=== PATIENT | female | born 1990 | race Caucasian/White ===

== ENCOUNTER 2023-09-30 00:17 | Inpatient (IN) | payer OTHER ==
[2023-09-30] MEDS ORDERED: LORazepam 2 MG/ML SDV VIAL IVPUSH PRN (00:45)
[2023-09-30] MEDS ORDERED: levETIRAcetam 500 MG/5 ML INJECTION VIAL IVPB ONE ×4 (00:46→08:01)
[2023-09-30] MEDS ORDERED: SODIUM CHLORIDE 0.9% 500 ML INFUS.BAG IV ONE ×2 (00:58→03:22)
[2023-09-30] MEDS ORDERED: ONDANSETRON 4 MG/2 ML VIAL IVPUSH ONE (01:20)
[2023-09-30] MEDS ORDERED: CLINDAMYCIN 600MG PREMIX IVPB 600 MG/50 ML BAG IVPB ONE (01:49)
[2023-09-30 01:57] LABS: HEMATOCRIT 26.9 % (32.4-45.2); HEMOGLOBIN 8.9 GM/dL (10.7-15.3); MCH 26.9 pg (25.7-33.7); MCHC 32.9 g/dl (32.0-36.0); MEAN PLT VOLUME 5.9 fl (7.5-11.1); PLATELET COUNT 658 10^3/uL (134-434); RBC 3.29 M/mm3 (3.60-5.2); RDW 18.7 % (11.6-15.6); WHITE BLOOD COUNT 21.5 K/mm3 (4.0-10.0)
[2023-09-30 02:06] LABS: CHLORIDE 102 mmol/L (98-107); POTASSIUM 3.4 mmol/L (3.5-5.1); SODIUM 133 mmol/L (136-145)
[2023-09-30 02:10] LABS: ALBUMIN 2.1 g/dl (3.4-5.0); ANION GAP 5 mmol/L (4-13); BLOOD UREA NITROGEN 7.1 mg/dL (7-18); CO2 26 mmol/L (21-32); GLUCOSE,RANDOM 134 mg/dL (74-106)
[2023-09-30 02:12] LABS: CREATININE 0.8 mg/dL (0.55-1.3); SGOT/AST 15 U/L (15-37)
[2023-09-30 02:14] LABS: TOT PROT 8.7 g/dl (6.4-8.2)
[2023-09-30 02:16] LABS: ALK PHOS 82 U/L (45-117)
[2023-09-30] MEDS ORDERED: MAGNESIUM SULF 50% (8.12 MEQ/2 ML-1 GM VIAL) IVPB ONE (02:17)
[2023-09-30 02:32] LABS: LACTIC ACID 2.4 mmol/L (0.4-2.0)
[2023-09-30] MEDS ORDERED: VANCOMYCIN 1,000 MG in DEXTROSE 5%-WATER - 250 ML IVPB ONE (02:36)
[2023-09-30 02:37] LABS: BILIRUBIN,TOTAL 0.3 mg/dL (0.2-1)
[2023-09-30] MEDS ORDERED: PIPERACILLIN/TAZOB 3.375 GM 3.375 GM in DEXTROSE 5%-WATER - 50 ML IVPB ONE (02:38)
[2023-09-30 02:40] LABS: SGPT/ALT 11 U/L (13-61)
[2023-09-30] MEDS ORDERED: ONDANSETRON 4 MG/2 ML VIAL ONE (02:43)
[2023-09-30] MEDS ORDERED: VANCOMYCIN 1 GRAM (PRE-DOCKED) 1,000 MG/250 ML BAG IVPB ONE (02:43)
[2023-09-30] MEDS ORDERED: MAGNESIUM SULFATE IN WATER 2 GM/50 ML IVPB IVPB ONE (02:43)
[2023-09-30] MEDS ORDERED: PIPERACILLIN/TAZOB 3.375 GM 3.375 GM/50 ML BAG IVPB ONE ×2 (02:44→08:02)
[2023-09-30 03:46] LABS: ANISOCYTOSIS 1+; MACROCYTOSIS 1+; ROULEAU 1+
[2023-09-30] MEDS ORDERED: diazePAM CARPU-JECT 10 MG/2 ML DISP.SYRIN IVPUSH ONE (04:18)
[2023-09-30] MEDS ORDERED: diazePAM CARPU-JECT 10 MG/2 ML DISP.SYRIN ONE (04:21)
[2023-09-30] MEDS ORDERED: VANCOMYCIN/WATER 1250 MG 1,250 MG/250 ML BAG IVPB SCH ×2 (04:45→15:00)
[2023-09-30] MEDS ORDERED: SODIUM CHLORIDE 1,000 ML IV STA (04:47)
[2023-09-30 05:24] LABS: EPI CELLS >36 /uL (0-25.1); HYALINE CASTS 1 /uL (0-3.1); PH,URINE 6.5 (5.0-8.0); URINE APPEARANCE CLOUDY; URINE BACTERIA 314 /uL (0-1359); URINE BILIRUBIN NEGATIVE (NEGATIVE); URINE COLOR YELLOW; URINE GLUCOSE (UA) NEGATIVE (NEGATIVE); URINE KETONE NEGATIVE (NEGATIVE); URINE LEUK ESTERASE 3+ (NEGATIVE); URINE NITRITE NEGATIVE (NEGATIVE); URINE PROTEIN TRACE (NEGATIVE); URINE RBC 255 /uL (0-23.9); URINE UROBILINOGEN 0.2 mg/dL (0.2-1.0); URINE WBC 149 /uL (0-25.8)
[2023-09-30] MEDS ORDERED: ACETAMINOPHEN 1000 MG/100 ML BAG IVPB PRN (05:24)
[2023-09-30 05:26] LABS: COCAINE, UR NEGATIVE (NEGATIVE); OPIATES, URI NEGATIVE (NEGATIVE); URINE BARBITURATES NEGATIVE (NEGATIVE)
[2023-09-30 05:28] LABS: METHADONE, UR NEGATIVE (NEGATIVE)
[2023-09-30 05:35] LABS: PHENCYCLIDINE,URINE NEGATIVE (NEGATIVE); URINE AMPHETAMINES NEGATIVE (NEGATIVE); URINE BENZODIAZEPINES POSITIVE (NEGATIVE)
[2023-09-30 06:37] LABS: HEMATOCRIT 27.7 % (32.4-45.2); HEMOGLOBIN 8.9 GM/dL (10.7-15.3); MCH 27.2 pg (25.7-33.7); MCHC 32.1 g/dl (32.0-36.0); MEAN CELL VOLUME 84.8 fl (80-96); MEAN PLT VOLUME 6.1 fl (7.5-11.1); PLATELET COUNT 641 10^3/uL (134-434); RBC 3.27 M/mm3 (3.60-5.2); RDW 18.6 % (11.6-15.6); WHITE BLOOD COUNT 20.5 K/mm3 (4.0-10.0)
[2023-09-30 06:59] LABS: LACTIC ACID 4.4 mmol/L (0.4-2.0)
[2023-09-30 06:59] LABS: POTASSIUM 3.9 mmol/L (3.5-5.1)
[2023-09-30 07:00] LABS: ALBUMIN 2.2 g/dl (3.4-5.0); CALCIUM 8.1 mg/dL (8.5-10.1)
[2023-09-30 07:02] LABS: MAGNESIUM 2.4 mg/dL (1.8-2.4)
[2023-09-30 07:03] LABS: CREATININE 0.6 mg/dL (0.55-1.3)
[2023-09-30 07:04] LABS: PHOSPHOROUS 2.9 mg/dL (2.5-4.9)
[2023-09-30 07:06] LABS: BILIRUBIN,TOTAL 0.3 mg/dL (0.2-1)
[2023-09-30] MEDS ORDERED: ACETAMINOPHEN INJECTION 100 ML IVPB ONE (08:01)
[2023-09-30] MEDS ORDERED: KCL 10 MEQ IVPB 30 MEQ/300 ML INFUS.BAG IVPB ONE (08:02)
[2023-09-30] MEDS: KCL 10 MEQ IVPB 10 MEQ/100 ML INFUS.BAG IVPB SCH ×3 (08:13→10:11)
[2023-09-30 08:55] LABS: ANISOCYTOSIS 2+; MACROCYTOSIS 0; TARGET CELLS 1+; TOXIC GRANULATION 1+
[2023-09-30] MEDS ORDERED: PIPERACILLIN/TAZOB 3.375 GM 3.375 GM in DEXTROSE 5%-WATER - 50 ML IVPB SCH (09:00)
[2023-09-30 09:39] LABS: RETICULOCYTES 1.49 % (0.5-1.5)
[2023-09-30] MEDS: SODIUM CHLORIDE 1,000 ML IV SCH (10:11)
[2023-09-30 10:14] LABS: ERYTHROCYTE SEDIMENTATION RATE 119 mm/hr (0-20)
[2023-09-30] MEDS: ENOXAPARIN NA (PORCINE) 40 MG/0.4 ML DISP.SYRIN SQ SCH (11:20)
[2023-09-30 12:01] LABS: INR 1.41 (0.83-1.09); PROTHROMBIN TIME (PATIENT) 16.3 SEC (9.7-13.0)
[2023-09-30] MEDS ORDERED: MIDAZOLAM HCL 2 MG/2 ML SINGLE DOSE VIAL IVPUSH ONE (12:47)
[2023-09-30] MEDS ORDERED: fentaNYL CITRATE 250 MCG/5 ML VIAL ONE (13:02)
[2023-09-30] MEDS ORDERED: VANCOMYCIN/WATER FOR INJ (PEG) 1,000 MG/200 ML BAG IVPB SCH (14:00)
[2023-09-30 14:01] LABS: CSF APPEARANCE CLEAR (CLEAR); CSF COLOR COLORLESS (COLORLESS); CSF WBC 1 mm3 (0-5)
[2023-09-30] MEDS: CLINDAMYCIN 900 MG PREMIX IVPB 900 MG/50 ML BAG IVPB SCH ×2 (14:20→17:04)
[2023-09-30 14:49] LABS: BF GLUCOSE (CSF ONLY) 51 mg/dL (40-70)
[2023-09-30] MEDS: CEFEPIME HCL 2 GM VIAL (RESTRICTED TO ID) IVPB SCH ×2 (14:54→17:04)
[2023-09-30] MEDS: VANCOMYCIN/WATER FOR INJ (PEG) 1,000 MG/200 ML BAG IVPB SCH (14:55)
[2023-09-30] MEDS: MUPIROCIN 2% TOPICAL OINTMENT FOR DECOLONIZATION NS SCH (21:49)
[2023-09-30] MEDS: CHLORHEXIDINE GLUCONATE 4% CLEANSER FOR DECOLONIZATION TP SCH (21:49)
[2023-09-30] MEDS: levETIRAcetam 500 MG/5 ML INJECTION VIAL IVPB SCH (21:49)
[2023-10-01] MEDS: CEFEPIME HCL 2 GM VIAL (RESTRICTED TO ID) IVPB SCH ×3 (01:14→17:31)
[2023-10-01] MEDS: VANCOMYCIN/WATER FOR INJ (PEG) 1,000 MG/200 ML BAG IVPB SCH ×2 (01:14→15:13)
[2023-10-01] MEDS: SODIUM CHLORIDE 1,000 ML IV SCH ×2 (03:36→16:13)
[2023-10-01] MEDS: CLINDAMYCIN 900 MG PREMIX IVPB 900 MG/50 ML BAG IVPB SCH ×2 (03:36→11:03)
[2023-10-01] MEDS: MUPIROCIN 2% TOPICAL OINTMENT FOR DECOLONIZATION NS SCH ×2 (09:03→21:32)
[2023-10-01] MEDS: levETIRAcetam 500 MG/5 ML INJECTION VIAL IVPB SCH ×2 (09:03→21:32)
[2023-10-01] MEDS: ENOXAPARIN NA (PORCINE) 40 MG/0.4 ML DISP.SYRIN SQ SCH (09:08)
[2023-10-01 11:14] LABS: BASO % 0.4 % (0-2.0); EOS % 0.3 % (0-4.5); HEMATOCRIT 27.2 % (32.4-45.2); HEMOGLOBIN 8.8 GM/dL (10.7-15.3); LYMPH % 10.5 % (8-40); MCH 27.2 pg (25.7-33.7); MCHC 32.2 g/dl (32.0-36.0); MEAN CELL VOLUME 84.4 fl (80-96); MEAN PLT VOLUME 6.2 fl (7.5-11.1); MONO % 4.5 % (3.8-10.2); NEUT % 84.3 % (42.8-82.8); PLATELET COUNT 672 10^3/uL (134-434); RBC 3.22 M/mm3 (3.60-5.2); RDW 18.8 % (11.6-15.6); WHITE BLOOD COUNT 18.5 K/mm3 (4.0-10.0)
[2023-10-01 11:36] LABS: CHLORIDE 105 mmol/L (98-107); POTASSIUM 4.4 mmol/L (3.5-5.1); SODIUM 134 mmol/L (136-145)
[2023-10-01 11:38] LABS: ANION GAP 10 mmol/L (4-13); CALCIUM 8.3 mg/dL (8.5-10.1); CO2 19 mmol/L (21-32)
[2023-10-01 11:39] LABS: BLOOD UREA NITROGEN 4.4 mg/dL (7-18); MAGNESIUM 1.8 mg/dL (1.8-2.4)
[2023-10-01 11:41] LABS: CREATININE 0.4 mg/dL (0.55-1.3)
[2023-10-01 11:42] LABS: GLUCOSE,RANDOM 46 mg/dL (74-106)
[2023-10-01] MEDS ORDERED: DEXTROSE 50%-WATER 25 GM/50 ML DISP.SYRIN ONE (11:55)
[2023-10-01] MEDS ORDERED: ACETAMINOPHEN 1000 MG/100 ML BAG IVPB ONE (12:15)
[2023-10-01] MEDS ORDERED: DEXTROSE 50%-WATER - 25 GM/50 ML VIAL IVPUSH ONE (12:15)
[2023-10-01 16:07] VITALS: BMI 23.3
[2023-10-01] MEDS: CHLORHEXIDINE GLUCONATE 4% CLEANSER FOR DECOLONIZATION TP SCH (21:32)
[2023-10-02] MEDS: VANCOMYCIN/WATER FOR INJ (PEG) 1,000 MG/200 ML BAG IVPB SCH ×2 (02:32→13:52)
[2023-10-02] MEDS: CEFEPIME HCL 2 GM VIAL (RESTRICTED TO ID) IVPB SCH ×3 (02:32→17:43)
[2023-10-02 06:52] LABS: BASO % 0.5 % (0-2.0); HEMATOCRIT 29.1 % (32.4-45.2); HEMOGLOBIN 9.3 GM/dL (10.7-15.3); LYMPH % 15.4 % (8-40); MEAN CELL VOLUME 84.3 fl (80-96); MEAN PLT VOLUME 6.2 fl (7.5-11.1); NEUT % 78.1 % (42.8-82.8); PLATELET COUNT 745 10^3/uL (134-434); RBC 3.45 M/mm3 (3.60-5.2); RDW 18.4 % (11.6-15.6); WHITE BLOOD COUNT 17.3 K/mm3 (4.0-10.0)
[2023-10-02 07:03] LABS: POTASSIUM 4.2 mmol/L (3.5-5.1)
[2023-10-02 07:08] LABS: CALCIUM 8.1 mg/dL (8.5-10.1)
[2023-10-02 07:09] LABS: ALBUMIN 1.8 g/dl (3.4-5.0); BLOOD UREA NITROGEN 4.9 mg/dL (7-18); MAGNESIUM 1.7 mg/dL (1.8-2.4)
[2023-10-02 07:13] LABS: BILIRUBIN,TOTAL 0.3 mg/dL (0.2-1); CREATININE 0.5 mg/dL (0.55-1.3); TOT PROT 8.1 g/dl (6.4-8.2)
[2023-10-02] MEDS ORDERED: MAGNESIUM SULF 50% (8.12 MEQ/2 ML-1 GM VIAL) IVPB ONE (07:43)
[2023-10-02] MEDS: levETIRAcetam 500 MG/5 ML INJECTION VIAL IVPB SCH ×2 (09:00→22:01)
[2023-10-02] MEDS ORDERED: PROPOFOL 20 ML ONE (09:39)
[2023-10-02] MEDS ORDERED: FENTANYL CITRATE/PF 50 MCG/ML VIAL ONE ×5 (09:39→10:48)
[2023-10-02] MEDS ORDERED: MIDAZOLAM HCL 2 MG/2 ML SINGLE DOSE VIAL ONE (09:39)
[2023-10-02] MEDS ORDERED: LIDOCAINE HCL/PF 2% SDV 5ML VIAL ONE (09:39)
[2023-10-02] MEDS: MUPIROCIN 2% TOPICAL OINTMENT FOR DECOLONIZATION NS SCH ×2 (09:40→22:00)
[2023-10-02] MEDS: ENOXAPARIN NA (PORCINE) 40 MG/0.4 ML DISP.SYRIN SQ SCH (09:40)
[2023-10-02] MEDS ORDERED: LIDOCAINE HCL 1%, 10 MG/ML (20ML VIAL) ONE (09:50)
[2023-10-02] MEDS ORDERED: BUPIVACAINE HCL/PF 0.5% (5MG/ML) 10 ML VIAL ONE (09:50)
[2023-10-02] MEDS ORDERED: DEXAMETHASONE SOD PHOSPHATE 4 MG/1 ML VIAL ONE (10:34)
[2023-10-02] MEDS ORDERED: ONDANSETRON 4 MG/2 ML VIAL ONE (10:34)
[2023-10-02] MEDS ORDERED: KETOROLAC TROMETHAMINE 30 MG/1 ML VIAL ONE (10:39)
[2023-10-02] MEDS ORDERED: LIDOCAINE HCL 1%, 10 MG/ML (20ML VIAL) NR ONE (10:43)
[2023-10-02] MEDS ORDERED: BUPIVACAINE HCL/PF 0.5% (5 MG/ML) 30 ML VIAL IJ ONE (10:44)
[2023-10-02] MEDS ORDERED: ACETAMINOPHEN INJECTION 100 ML IVPB ONE (10:47)
[2023-10-02] MEDS ORDERED: ONDANSETRON 4 MG/2 ML VIAL IVPUSH PRN (11:22)
[2023-10-02] MEDS ORDERED: PROMETHAZINE HCL 25 MG/1 ML VIAL IVPB PRN (11:22)
[2023-10-02] MEDS ORDERED: DEXAMETHASONE SOD PHOSPHATE 4 MG/1 ML VIAL IVPUSH PRN (11:22)
[2023-10-02] MEDS ORDERED: HYDROmorphone HCl 2 MG/ML VIAL ONE (11:24)
[2023-10-02] MEDS ORDERED: HYDROmorphone *PCA* 10MG/50ML DISP.SYRIN PCA SCH (11:30)
[2023-10-02] MEDS ORDERED: HYDROmorphone HCl 2 MG/ML VIAL IVPUSH ONE (11:45)
[2023-10-02] MEDS: SODIUM CHLORIDE 1,000 ML IV SCH (13:52)
[2023-10-02] MEDS: CHLORHEXIDINE GLUCONATE 4% CLEANSER FOR DECOLONIZATION TP SCH (22:01)
[2023-10-03] MEDS: CEFEPIME HCL 2 GM VIAL (RESTRICTED TO ID) IVPB SCH ×2 (01:24→09:32)
[2023-10-03] MEDS: ACETAMINOPHEN 325 MG TABLET (FP) PO PRN ×2 (05:56→18:09)
[2023-10-03 07:12] LABS: BASO % 0.5 % (0-2.0); EOS % 0.3 % (0-4.5); HEMATOCRIT 28.6 % (32.4-45.2); HEMOGLOBIN 8.8 GM/dL (10.7-15.3); MCH 26.4 pg (25.7-33.7); MCHC 30.7 g/dl (32.0-36.0); MEAN CELL VOLUME 85.9 fl (80-96); MEAN PLT VOLUME 6.3 fl (7.5-11.1); MONO % 4.3 % (3.8-10.2); NEUT % 81.9 % (42.8-82.8); PLATELET COUNT 773 10^3/uL (134-434); RBC 3.33 M/mm3 (3.60-5.2); RDW 18.6 % (11.6-15.6); WHITE BLOOD COUNT 13.3 K/mm3 (4.0-10.0)
[2023-10-03 07:36] LABS: POTASSIUM 4.1 mmol/L (3.5-5.1)
[2023-10-03 07:40] LABS: ALBUMIN 1.8 g/dl (3.4-5.0); BLOOD UREA NITROGEN 8.6 mg/dL (7-18); CALCIUM 7.8 mg/dL (8.5-10.1); MAGNESIUM 2.2 mg/dL (1.8-2.4)
[2023-10-03 07:43] LABS: PHOSPHOROUS 3.2 mg/dL (2.5-4.9)
[2023-10-03 07:44] LABS: CREATININE 0.6 mg/dL (0.55-1.3)
[2023-10-03 07:45] LABS: BILIRUBIN,TOTAL 0.2 mg/dL (0.2-1); TOT PROT 7.9 g/dl (6.4-8.2)
[2023-10-03] MEDS: ENOXAPARIN NA (PORCINE) 40 MG/0.4 ML DISP.SYRIN SQ SCH (09:32)
[2023-10-03] MEDS: MUPIROCIN 2% TOPICAL OINTMENT FOR DECOLONIZATION NS SCH ×2 (09:32→22:13)
[2023-10-03] MEDS: levETIRAcetam 500 MG/5 ML INJECTION VIAL IVPB SCH ×2 (09:32→22:11)
[2023-10-03] MEDS ORDERED: KETOROLAC TROMETHAMINE 30 MG/1 ML VIAL IVPUSH ONE (13:30)
[2023-10-03] MEDS: PIPERACILLIN/TAZOB 3.375 GM 3.375 GM in DEXTROSE 5%-WATER - 50 ML IVPB SCH (18:08)
[2023-10-03] MEDS: CHLORHEXIDINE GLUCONATE 4% CLEANSER FOR DECOLONIZATION TP SCH (22:13)
[2023-10-04] MEDS: PIPERACILLIN/TAZOB 3.375 GM 3.375 GM in DEXTROSE 5%-WATER - 50 ML IVPB SCH ×3 (02:51→17:45)
[2023-10-04] MEDS: ACETAMINOPHEN 325 MG TABLET (FP) PO PRN ×2 (04:10→07:21)
[2023-10-04] MEDS ORDERED: PIPERACILLIN/TAZOBACTAM 3.375 GM VIAL IVPB ONE (09:03)
[2023-10-04] MEDS: levETIRAcetam 500 MG/5 ML INJECTION VIAL IVPB SCH ×2 (09:19→21:49)
[2023-10-04] MEDS: ENOXAPARIN NA (PORCINE) 40 MG/0.4 ML DISP.SYRIN SQ SCH ×2 (09:20→10:23)
[2023-10-04] MEDS ORDERED: MUPIROCIN 2% TOPICAL OINTMENT FOR DECOLONIZATION NS SCH (10:00)
[2023-10-04] MEDS: ACETAMINOPHEN 1000 MG/100 ML BAG IVPB SCH ×2 (13:09→21:42)
[2023-10-04] MEDS: NAPROXEN 250 MG TABLET PO SCH ×2 (13:10→21:48)
[2023-10-04] MEDS: oxyCODONE HCL 5 MG TABLET PO PRN ×2 (13:10→18:55)
[2023-10-04] MEDS ORDERED: CHLORHEXIDINE GLUCONATE 4% CLEANSER FOR DECOLONIZATION TP SCH (22:00)
[2023-10-05] MEDS ORDERED: PIPERACILLIN/TAZOBACTAM 3.375 GM VIAL IVPB ONE ×2 (00:57→08:30)
[2023-10-05] MEDS: PIPERACILLIN/TAZOB 3.375 GM 3.375 GM in DEXTROSE 5%-WATER - 50 ML IVPB SCH ×3 (01:26→17:07)
[2023-10-05] MEDS: ACETAMINOPHEN 1000 MG/100 ML BAG IVPB SCH ×3 (05:28→22:18)
[2023-10-05] MEDS: oxyCODONE HCL 5 MG TABLET PO PRN ×3 (08:34→20:05)
[2023-10-05] MEDS: NAPROXEN 250 MG TABLET PO SCH ×2 (09:01→21:34)
[2023-10-05] MEDS: ENOXAPARIN NA (PORCINE) 40 MG/0.4 ML DISP.SYRIN SQ SCH ×2 (09:02→09:30)
[2023-10-05] MEDS: levETIRAcetam 500 MG/5 ML INJECTION VIAL IVPB SCH ×2 (09:03→22:18)
[2023-10-06] MEDS: PIPERACILLIN/TAZOB 3.375 GM 3.375 GM in DEXTROSE 5%-WATER - 50 ML IVPB SCH ×3 (01:28→17:16)
[2023-10-06] MEDS: ACETAMINOPHEN 1000 MG/100 ML BAG IVPB SCH ×3 (05:25→21:42)
[2023-10-06] MEDS: NAPROXEN 250 MG TABLET PO SCH ×2 (10:05→22:11)
[2023-10-06] MEDS: levETIRAcetam 500 MG/5 ML INJECTION VIAL IVPB SCH ×2 (10:05→21:41)
[2023-10-06] MEDS: ENOXAPARIN NA (PORCINE) 40 MG/0.4 ML DISP.SYRIN SQ SCH ×2 (10:06→10:10)
[2023-10-06] MEDS: oxyCODONE HCL 5 MG TABLET PO PRN ×2 (12:17→15:46)
[2023-10-06] MEDS ORDERED: MINERAL OIL/PETROLAT/WATER TOPICAL CREAM 113 GM JAR TP PRN (13:34)
[2023-10-06 22:26] VITALS: RESP 18
[2023-10-07] MEDS: PIPERACILLIN/TAZOB 3.375 GM 3.375 GM in DEXTROSE 5%-WATER - 50 ML IVPB SCH ×3 (01:42→17:32)
[2023-10-07] MEDS: ACETAMINOPHEN 1000 MG/100 ML BAG IVPB SCH ×3 (05:34→22:30)
[2023-10-07] MEDS: levETIRAcetam 500 MG/5 ML INJECTION VIAL IVPB SCH (09:19)
[2023-10-07] MEDS: NAPROXEN 250 MG TABLET PO SCH ×2 (09:20→22:32)
[2023-10-07] MEDS: ENOXAPARIN NA (PORCINE) 40 MG/0.4 ML DISP.SYRIN SQ SCH ×2 (09:22→09:30)
[2023-10-07] MEDS: oxyCODONE HCL 5 MG TABLET PO PRN (18:35)
[2023-10-07] MEDS ORDERED: levETIRAcetam 500 MG TABLET (FP) PO SCH (23:45)
[2023-10-08] MEDS: oxyCODONE HCL 5 MG TABLET PO PRN ×4 (04:07→20:27)
[2023-10-08] MEDS ORDERED: ACETAMINOPHEN 500 MG TABLET (FP) PO PRN (06:11)
[2023-10-08 09:47] LABS: BASO % 0.5 % (0-2.0); HEMATOCRIT 25.4 % (32.4-45.2); HEMOGLOBIN 7.9 GM/dL (10.7-15.3); LYMPH % 32.6 % (8-40); MCH 26.7 pg (25.7-33.7); MCHC 31.1 g/dl (32.0-36.0); MEAN CELL VOLUME 85.8 fl (80-96); MEAN PLT VOLUME 6.2 fl (7.5-11.1); MONO % 6.2 % (3.8-10.2); NEUT % 58.7 % (42.8-82.8); PLATELET COUNT 897 10^3/uL (134-434); RBC 2.96 M/mm3 (3.60-5.2); WHITE BLOOD COUNT 9.8 K/mm3 (4.0-10.0)
[2023-10-08 10:16] LABS: POTASSIUM 4.6 mmol/L (3.5-5.1)
[2023-10-08 10:18] LABS: ALBUMIN 2.1 g/dl (3.4-5.0); CALCIUM 8.7 mg/dL (8.5-10.1)
[2023-10-08 10:19] LABS: BLOOD UREA NITROGEN 8.4 mg/dL (7-18); MAGNESIUM 2.1 mg/dL (1.8-2.4)
[2023-10-08 10:22] LABS: CREATININE 0.5 mg/dL (0.55-1.3); PHOSPHOROUS 4.2 mg/dL (2.5-4.9)
[2023-10-08 10:23] LABS: BILIRUBIN,TOTAL 0.3 mg/dL (0.2-1)
[2023-10-08 10:24] LABS: TOT PROT 8.5 g/dl (6.4-8.2)
[2023-10-08] MEDS: NAPROXEN 250 MG TABLET PO SCH ×2 (10:47→21:33)
[2023-10-08] MEDS: ENOXAPARIN NA (PORCINE) 40 MG/0.4 ML DISP.SYRIN SQ SCH (10:52)
[2023-10-08] MEDS: PIPERACILLIN/TAZOB 3.375 GM 3.375 GM in DEXTROSE 5%-WATER - 50 ML IVPB SCH (11:49)
[2023-10-08] MEDS ORDERED: levoFLOXacin 750 MG TABLET PO SCH (14:00)
[2023-10-09] MEDS: NAPROXEN 250 MG TABLET PO SCH (09:24)
[2023-10-09] MEDS: ENOXAPARIN NA (PORCINE) 40 MG/0.4 ML DISP.SYRIN SQ SCH (09:26)
[2023-10-09 14:51] VITALS: BP 105/63; PULSE 96; TEMP 97.9
== END 2023-10-09 17:00 | disposition home health service (06) | DRG 710 ==
LOC: EDBD 00:17 → JER 00:17 → INTOOBSV 03:13 → JERBED 03:13 → OBSVTOIN 04:35 → JICU 11:42 → J6S 10-03 17:33
PROVIDERS: ADMIT Internal Medicine; ATTEND Internal Medicine
PROC: 009U3ZZ Drainage of Spinal Canal, Percutaneous Approach (ICD-10-PCS; principal; 2023-09-30)
PROC: 4A00X4Z Measurement of Central Nervous Electrical Activity, External Approach (ICD-10-PCS; 2023-09-30)
PROC: 0J9C0ZZ Drainage of Pelvic Region Subcutaneous Tissue and Fascia, Open Approach (ICD-10-PCS; 2023-09-30)
PROC: 0X950ZZ Drainage of Left Axilla, Open Approach (ICD-10-PCS; 2023-09-30)
PROC: 0X940ZZ Drainage of Right Axilla, Open Approach (ICD-10-PCS; 2023-09-30)
PROC: 0U9M0ZZ Drainage of Vulva, Open Approach (ICD-10-PCS; 2023-09-30)
PROC: 0JBD0ZZ Excision of Right Upper Arm Subcutaneous Tissue and Fascia, Open Approach (ICD-10-PCS; 2023-09-30)
DX: A41.89 Other specified sepsis (principal); E87.20 Acidosis, unspecified; L02.214 Cutaneous abscess of groin; D75.839 Thrombocytosis, unspecified; G40.909 Epilepsy, unspecified, not intractable, without status epilepticus; N76.4 Abscess of vulva; L73.2 Hidradenitis suppurativa; D64.9 Anemia, unspecified; D69.6 Thrombocytopenia, unspecified; N39.0 Urinary tract infection, site not specified; R41.82 Altered mental status, unspecified; T42.6X5A Adverse effect of other antiepileptic and sedative-hypnotic drugs, initial encounter; B96.1 Klebsiella pneumoniae [K. pneumoniae] as the cause of diseases classified elsewhere; B95.2 Enterococcus as the cause of diseases classified elsewhere; B96.20 Unspecified Escherichia coli [E. coli] as the cause of diseases classified elsewhere
CPT/HCPCS: 0241U-QW; 36415; 70450-TC; 70551-TC; 71260-TC; 72193-TC; 80048; 80053; 80171; 80307; 81003; 82550; 82553; 82945; 82962; 83036; 83605; 83735; 84100; 84157; 84166; 84443; 84703; 85025; 85045; 85379; 85610; 85651; 86140; 86592; 86617; 86694; 86735; 86765; 86777; 86780; 86787; 86788; 86789; 87040; 87070; 87077; 87086; 87102; 87116; 87186; 87205; 87206; 87210; 87252; 87529; 87899; 93005; 93010; 93306-TC; 95816; 99285-25; G0378